=== PATIENT | male | born 1995 | race African-American/Black ===

== ENCOUNTER 2023-06-21 15:59 | Emergency (ER) | payer SELFPAY ==
[2023-06-21 16:14] VITALS: BP 165/106; PULSE 85; RESP 18; TEMP 36.6; O2SAT 99
--- NOTE | 2023-06-21 16:25 | ED.EYEPROB ---
HPI - Eye Problem General Chief complaint: Eye Problems Stated complaint: Eyes Irritation Time Seen by Provider: 06/21/23 16:15 Source: patient Mode of arrival: ambulatory Limitations: no limitations History of Present Illness HPI Narrative: Jose Alberto is a 27-year-old male patient presenting to the clinic today with complaints of bilateral eye irritation/burning. 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 Positive for photosensitivity and eye watering. Related Data Home Medications Medication Instructions Recorded Confirmed amlodipine 5 mg tablet mg 06/21/23 warfarin 10 mg tablet mg 06/21/23 Allergies Allergy/AdvReac Type Severity Reaction Status Date / Time amoxicillin [From Amoxil] Allergy Swelling Verified 06/21/23 16:21 Review of Systems Review of Systems: Pertinent positives per HPI. Patient denies any fever, chills, rash, headache, dizziness, cough, runny nose, sore throat, shortness of breath, chest pain, palpitations, nausea, vomiting, diarrhea, constipation, abdominal pain, or any urinary issues. PMFSH Comments At the time of my signature, I reviewed and agree with the nursing past medical, surgical, social, and family history. There is no relevant family history pertinent to the patient complaint. Exam Narrative: General: Well-developed, well nourished, in no apparent distress Head: Normocephalic, atraumatic Eyes: Pupils equally round and reactive to light bilaterally, EOM intact, sclera injected and conjunctive clear, watery discharge, lids normal Ears: TMs intact and clear, ear canals clear, no drainage, grossly hearing normal. Nose: Nares patent, no discharge, no inflammation, no sinus tenderness. Mouth: Oropharynx without lesions or masses, good dentition, MMM. Neck: Supple, trachea midline, no enlargement of anterior or posterior cervical nodes, no thyroid masses or goiter palpable. Cardio: Regular rate and rhythm, s1 and s2 normal, no murmur appreciated. Resp: Clear to auscultation bilaterally anteriorly and posteriorly, no rhonchi, rales, wheezing or rubs Course Course Emergency Course: Portions of this record may have been created with voice recognition software. Level of Care: Express Care Visit Vital Signs Vital signs: Vital Signs Temperature 36.6 C 06/21/23 16:14 Pulse Rate 85 06/21/23 16:14 Respiratory Rate 18 06/21/23 16:14 Blood Pressure 165/106 H 08/28/23 16:14 Pulse Oximetry 99 06/21/23 16:14 Oxygen Delivery Room Air 06/21/23 16:14 Temperature 36.6 C 06/21/23 16:14 Pulse Rate 85 06/21/23 16:14 Respiratory Rate 18 06/21/23 16:14 Blood Pressure 165/106 H 06/21/23 16:14 Pulse Oximetry 99 06/21/23 16:14 Oxygen Delivery Room Air 06/21/23 16:14 Vital signs reviewed Procedures Other Procedure Procedure 1: Other Procedure: Two drops of tetracaine was instilled into each eye to help alleviate eye pain. MDM - Eye Problem MDM Narrative Medical decision making narrative: At the time of visit patient is resting comfortably on the exam table. I suspect patient has a corneal flash burn-photo keratosis-will send in prescription for E-Mycin ointment and tetracaine 2 drops were instilled into each eye to help alleviate pain. Supportive measures were discussed with the patient he voiced understanding discharge instructions. Recommend follow-up with an eye doctor this week to determine when patient can go back to work Differential Diagnosis Differential diagnosis: Likely corneal abrasion, conjunctivitis, acute iritis, periorbital cellulitis, corneal ulcer, ruptured globe and other (Photo keratitis) Discharge Plan Discharge Clinical Impression: Photokeratitis of both eyes Patient Disposition: Home, Self-Care Condition: Stable Instructions: Antibiotic Form, Corneal Flash Monsalve (ED) Additional Instructions: Wear sunglasses for photosensitivity No welding x1 week Instill erythromycin
== END 2023-06-21 16:37 | disposition home or self-care (01) ==
PROVIDERS: Emergency Provider Nurse Practitioner Family
DX: H16.133 Photokeratitis, bilateral (principal); I10 Essential (primary) hypertension
CPT/HCPCS: 99203; G0463

== ENCOUNTER 2025-01-16 17:09 | Emergency (ER) | payer OTHER, SELFPAY ==
[2025-01-16 17:16] VITALS: BP 165/110; PULSE 94; RESP 16; TEMP 36.7; O2SAT 100
[2025-01-16 17:25] VITALS: BP 177/120; PULSE 80; RESP 18; O2SAT 98
--- NOTE | 2025-01-16 17:38 | ECG_ITS ---
Test Date: 2025-01-16 17:59:55 Measurements Intervals [place] Rate: 71 P: 0 TN: 0 QRS: -22 QRSD: 115 T: 159 QT: 366 QTc: 399 Interpretive Statements SINUS RHYTHM BORDERLINE LEFT AXIS DEVIATION [QRS AXIS < -20] INCOMPLETE RIGHT BUNDLE BRANCH BLOCK [90+ ms QRS DURATION, TERMINAL R IN V1/V2, 40+ ms S IN I/aVL/V4/V5/V6] POSSIBLE LEFT VENTRICULAR HYPERTROPHY [VOLTAGE CRITERIA PLUS LAE OR QRS WIDENING] ST DEVIATION AND MODERATE T-WAVE ABNORMALITY, CONSIDER LATERAL ISCHEMIA [-0.1+ mV T WAVE IN I/aVL/V5/V6] No previous ECG available for comparison Electronically Signed On 01-17-2025 12:46:27 CDT by Ajay Gray M.D.
[2025-01-16 17:42] VITALS: BP 188/123; PULSE 71; RESP 18; O2SAT 97
[2025-01-16 17:47] VITALS: BP 182/112; PULSE 82; RESP 18; O2SAT 98
--- NOTE | 2025-01-16 17:50 | ED.GENADULT ---
HPI - General Adult General Chief complaint: Extremity Problem,Nontraumatic Stated complaint: blood clot Time Seen by Provider: 01/16/25 17:49 Mode of arrival: ambulatory Limitations: no limitations History of Present Illness HPI narrative: 29-year-old male presents concern for blood clot in his left lower extremity. He reports history of blood clots in that extremity that was not deep. He was on warfarin for a short period of time, he is not currently on any blood thinner. Reports over the last several days he has had pain in that medial left lower leg, reports warmth. He reports pain when he standing, reports he is on his feet a lot. Patient is hypertensive in triage, he does not currently take any antihypertensives, he reports he may have taken more in the past. Denies chest pain, shortness of breath, headache, vision changes. He denies weakness in any extremity. Related Data Home Medications ?Medication ?Instructions ?Recorded ?Confirmed ?Last Taken ?Type No Home Medications 01/16/25 01/16/25 Unknown History Allergies Allergy/AdvReac Type Severity Reaction Status Date / Time amoxicillin (From Amoxil) Allergy Swelling Verified 01/16/25 17:24 Review of Systems Review of Systems: CONSTITUTIONAL: Denies malaise, chills, sweats, or fever. EYES: Denies visual changes, redness, or discharge. ENT: Denies rhinorrhea, congestion, sinus pain, otalgia or sore throat. CARDIOVASCULAR: Denies chest pain, palpitations, or edema. RESPIRATORY: Denies cough or dyspnea. SKIN: Reports varicose veins in the left lower extremity MUSCULOSKELETAL: Reports left lower leg pain, warmth NEUROLOGIC: Denies numbness, weakness, or headache. PSYCHIATRIC: Denies anxiety or depression. All systems reviewed & are unremarkable except as noted in HPI and below PMFSH Comments At time of signature, agree with nursing past medical, surgical, social and family history. There is no relevant family history pertinent to the presenting complaint Exam Narrative: GENERAL: Nontoxic-appearing, well-nourished, and in no acute distress. HEAD: Normocephalic, atraumatic. EYES: PERRLA, sclera clear ENT: Nares clear. Mucous membranes moist. NECK: Supple. CHEST: No respiratory distress. Clear to auscultation. No bony deformities, no asymmetry. Speaks in full sentences. HEART: Regular rate and rhythm. No murmur heard. Normal peripheral pulses in the left lower extremity. EXTREMITIES: Grossly Normal range of motion in the left lower. No left lower extremity edema. Grossly Normal strength and sensation. Varicosities noted in the left lower extremity SKIN: Warm, dry, no visible rash. NEURO: Alert and oriented x3. No focal deficits. PSYCH: Normal mood and affect Course Course Emergency Course: Patient is aware of, understands and agrees to be transferred to the emergency. Patient agrees to be transferred to the emergency room via EMS Portions of this record may have been created with voice recognition software Level of Care: Express Care Visit Vital Signs Vital signs: Vital Signs Temperature 98.0 F 01/16/25 17:16 Pulse Rate 94 01/16/25 17:16 Respiratory Rate 16 01/16/25 17:16 Blood Pressure 165/110 H 01/16/25 17:16 Pulse Oximetry 100 01/16/25 17:16 Oxygen Delivery Room Air 01/16/25 17:16 Temperature 98.0 F 01/16/25 17:16 Pulse Rate 94 01/16/25 17:16 Respiratory Rate 16 01/16/25 17:16 Blood Pressure 165/110 H 01/16/25 17:16 Pulse Oximetry 100 01/16/25 17:16 Oxygen Delivery Room Air 01/16/25 17:16 Reviewed. Transfer Transfered to: [facility] Transportation: [facility] Transfer rationale: Abnormal EKG, hypertension Accepting physician: [facility] Decision Making [facility] Narrative Medical decision making narrative: Patient is nontoxic appearing and in no acute distress Vital Signs Vital Signs: Vital Signs Temperature 98.0 F 01/16/25 17:16 Pulse Rate 94 01/16/25 17:16 Respiratory Rate 16 01/16/25 17:16 Blood Pressure 165/110 H 01/16/25 17:16 Pulse Oximetry 100 01/16/25 17:16 Oxygen Delivery Room Air 01/16/25 17:16 Temperature 98.0 F 01/16/25 17:16 Pulse Rate 94 01/16/25 17:16 Respiratory Rate 16 01/16/25 17:16 Blood Pressure 165/110 H 01/16/25 17:16 Pulse Oximetry 100 01/16/25 17:16 Oxygen Delivery Room Air 01/16/25 17:16 ECG Data EKG #1: ECG completion date: 01/16/25 ECG completion time: 17:59 Prior ECG tracings: not available for review Interpretation: Rate 71, borderline left axis deviation, possible left ventricular hypertrophy, ST deviation and moderate T-wave abnormality EKG Interpretation: normal rate, atrial fibrillation and RBBB Critical Care Time Critical Care Time Critical Care Time: No Discharge Plan Discharge Clinical Impression: Abnormal ECG, Hypertension Patient Disposition: Acute Care Hospital Condition: Stable Patient Language: [place] Prescriptions: No Action warfarin 10 mg tablet amlodipine 5 mg tablet erythromycin 5 mg/gram (0.5 %) ointment 0.5 inch EACH EYE QID 7 Days Qty: 50 0RF Follow-up/Referrals: UNKNOWN,DOCTOR [Primary Care Provider] - Time of Disposition: 18:12
[2025-01-16 18:02] VITALS: BP 178/115; PULSE 83; RESP 18; O2SAT 98
[2025-01-16 18:10] VITALS: BP 178/115; PULSE 82; RESP 16; O2SAT 98
== END 2025-01-16 18:10 | disposition short-term general hospital (02) ==
PROVIDERS: Emergency Provider Nurse Practitioner
DX: R94.31 Abnormal electrocardiogram [ECG] [EKG] (principal); I10 Essential (primary) hypertension; Z86.2 Personal history of diseases of the blood and blood-forming organs and certain disorders involving the immune mechanism
CPT/HCPCS: 93005; 99213; G0463

== ENCOUNTER 2025-01-16 18:28 | Emergency (ER) | payer OTHER, SELFPAY ==
--- NOTE | ~2025-01-16 | US_ITS ---
EXAMINATION: US venous doppler [facility] DATE: 01/16/2025 20:08 INDICATION: LLE pain and swelling, varicose veins . TECHNIQUE: Grayscale images without and with compression and Doppler images of the left lower extremi ty veins were obtained. COMPARISON: None FINDINGS: The left common femoral vein, profunda (deep) femoral vein, femoral vein, popliteal vein, peroneal v ein, posterior tibial veins, gastrocnemius vein, and greater saphenous vein are patent. IMPRESSION: Patent left lower extremity veins. No evidence of deep venous thrombosis. Reviewed, dictated and finalized at location K.
[2025-01-16 18:29] VITALS: PULSE 80; RESP 20; TEMP 37.1; O2SAT 98
[2025-01-16 18:37] VITALS: RESP 20; O2SAT 98
--- NOTE | 2025-01-16 18:41 | ECG_ITS ---
Test Date: 2025-01-16 18:45:16 Measurements Intervals [place] Rate: 68 P: 24 UT: 160 QRS: -26 QRSD: 116 T: 156 QT: 386 QTc: 412 Interpretive Statements SINUS RHYTHM BORDERLINE LEFT AXIS DEVIATION [QRS AXIS < -20] INCOMPLETE RIGHT BUNDLE BRANCH BLOCK [90+ ms QRS DURATION, TERMINAL R IN V1/V2, 40+ ms S IN I/aVL/V4/V5/V6] LEFT VENTRICULAR HYPERTROPHY AND ST-T CHANGE [VOLTAGE CRITERIA PLUS ST/T ABNORMALITY] Compared to ECG 01/16/2025 17:59:55 NO SIGNIFICANT CHANGES Electronically Signed On 01-17-2025 12:46:47 CDT by Ajay Gray M.D.
--- NOTE | 2025-01-16 19:02 | ED.RECABL ---
HPI - Recheck/Abnormal Lab/Rx General Chief Complaint: Recheck/Abnormal Lab/Rx Stated Complaint: abnormal ekg Time Seen by Provider: 01/16/25 18:31 Source: patient Mode of arrival: ambulatory Limitations: no limitations History of Present Illness HPI narrative: This is a 29-year-old male who presents to the ED referred over from urgent care today for possible AFib. Patient states that he was having left lower leg pain and has varicose veins the left leg. 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 States that at urgent care they did an EKG and told him he had AFib in to come to the ER. He denies shortness of breath, chest pain, palpitations. Denies any specific injury to the leg. States that he has been told he has superficial phlebitis in the past but not any DVT. Denies fevers, chills, rash, numbness, weakness, nausea, vomiting. Related Data Allergies Allergy/AdvReac Type Severity Reaction Status Date / Time amoxicillin (From Amoxil) Allergy Swelling Verified 01/16/25 17:24 Review of Systems Review of Systems: All systems as dictated in HPI Exam Narrative: GENERAL: Well-appearing, well-nourished, and in no acute distress. HEAD: Normocephalic, atraumatic. EYES: PERRLA and EOMI. ENT: Nares clear, no rhinorrhea or epistaxis. Mucous membranes moist. Oropharynx without tonsillar hypertrophy exudate or other lesions. NECK: Supple. No adenopathy or masses. CHEST: No respiratory distress. Clear to auscultation. No wheezes rales or rhonchi HEART: Regular rate and rhythm. No murmur heard. Normal peripheral pulses. ABDOMEN: Soft, nontender, nondistended, normal active bowel sounds. MSK: Normal range of motion. No edema. Mild varicose veins to the left lower extremity. No erythema or warmth. SKIN: Warm, dry, no rash. NEURO: Alert and oriented x4. No focal deficits. PSYCH: Normal mood and affect. Course Vital Signs Vital signs: Vital Signs Temperature 98.8 F 01/16/25 18:29 Pulse Rate 80 01/16/25 18:29 Respiratory Rate 20 01/16/25 18:29 Pulse Oximetry 98 01/16/25 18:29 Oxygen Delivery Room Air 01/16/25 18:29 Temperature 98.8 F 01/16/25 18:29 Pulse Rate 83 01/16/25 21:42 Respiratory Rate 20 01/16/25 21:42 Blood Pressure 178/112 H 01/16/25 21:42 Pulse Oximetry 98 01/16/25 21:42 Oxygen Delivery Room Air 01/16/25 18:29 MDM - Recheck/Abnormal Lab/Rx MDM Narrative Medical decision making narrative: This is a 29-year-old male who presents to the ED for chief complaint of lower extremity pain and swelling. He was told urgent care he may have AFib based on their EKG. On arrival is vitals show elevated blood pressure but otherwise normal. EKG at urgent care and here today does not reveal AFib. He is in sinus rhythm. Exam for is remarkable for left varicose vein. Lab work shows no remarkable findings. Ultrasound left lower extremity shows no DVT. Patient was given Toradol here with good relief of pain. He will be given Rx for mod Pain for elevated blood pressure and encouraged follow-up with PCP on this issue. Patient will be discharged in stable condition. Supportive measures discussed and return precautions given. Patient is understanding and agreeable with plan for discharge with PCP follow-up. Lab Data 01/16/25 19:09 01/16/25 19:09 Labs: Lab Results 01/16/25 Range/Units 19:09 WBC 8.3 (4.5-10.0) K/mm3 RBC 5.26 (4.6-6.20) M/mm3 Hgb 15.4 (14.0-18.0) g/dL Hct 46.9 (42.0-52.0) % MCV 89.2 (80-100) fl MCH 29.3 (26-34) pg MCHC 32.8 (32-36) g/dl RDW 11.9 (11.5-14.5) % Plt Count 216 (150-375) k/mm3 MPV 9.9 (7.4-10.4) fl Immature Gran % (Auto) 0.2 (0-0.5) % Neut % (Auto) 67.2 (45.5-73.1) % Lymph % (Auto) 22.7 (18.3-44.2) % [place] % (Auto) 7.9 (2.6-8.5) % Eos % (Auto) 1.6 (0-4.4) % Baso % (Auto) 0.4 (0.2-1.2) % Lymph # (Auto) 1.88 (0.9-3.2) K/mm3 [place] # (Auto) 0.7 H (0.1-0.6) K/mm3 Eos # (Auto) 0.1 (0-0.3) K/mm3 Baso # (Auto) 0.0 (0.0-0.1) K/mm3 Abs Immat Gran (auto) 0.02 (0.00-0.031) K/mm3 Absolute Neuts (auto) 5.6 (1.3-6.7) K/mm3 Absolute Nucleated RBC 0.000 (0.0-0.012) K/mm3 Nucleated RBC % 0.0 (0.0-0.2) % PT 13.6 (11.1-14.7) Seconds INR 1.0 APTT 25.0 (22.3-36.8) Seconds Sodium 140 (137-145) mmol/L Potassium 3.6 (3.4-5.0) mmol/L Chloride 104 (98-107) mmol/L Carbon Dioxide 27 (22-30) mmol/L Anion Gap 9 (4-12) mmol/L BUN 11 (9-20) mg/dL Creatinine 0.93 (0.7-1.3) mg/dL Estim Creat Clear Calc 141 ml/min Estimated GFR > 60 (59 - ) Glucose 85 (65-110) mg/dL Calcium 9.1 (8.4-10.2) mg/dL Total Bilirubin 1.5 H (0.2-1.3) mg/dL AST 22 (17-59) U/L ALT 16 (6-50) U/L Alkaline Phosphatase 66 (38-126) U/L Total Protein 8.0 (6.3-8.2) g/dL Albumin 4.3 (3.5-5.1) g/dL Discharge Plan Discharge Clinical Impression: Leg pain, left, Blood pressure elevated without history of HTN, Varicose vein of leg Patient Disposition: Home, Self-Care Condition: Stable Instructions: Antibiotic Form Additional Instructions: Exam and imaging today are reassuring. Please take amlodipine daily for blood pressure. Use ibuprofen every 6 hours as needed pain control. If you have any new or worsening symptoms please return to the ER for further evaluation. Patient Language: Tu[place] Prescriptions: New amlodipine 2.5 mg tablet 2.5 mg PO DAILY Qty: 30 0RF ibuprofen 600 mg tablet 600 mg PO Q6H PRN (Reason: pain) Qty: 30 0RF Follow-up/Referrals: Dimitri Rosenberg MD [Physician] - UNKNOWN,DOCTOR [Non-Staff] - Stand Alone Forms: Work/School Release IP Time of Disposition: 21:05
[2025-01-16 19:18] LABS: Basophils Percent Auto 0.4 % (0.2-1.2); Eosinophils Absolute Auto 0.1 K/mm3 (0-0.3); Eosinophils Percent Auto 1.6 % (0-4.4); Hematocrit 46.9 % (42.0-52.0); Hemoglobin 15.4 g/dL (14.0-18.0); Immature Granulocyte Absolute 0.02 K/mm3 (0.00-0.031); Immature Granulocyte Percent A 0.2 % (0-0.5); Lymphocytes Absolute Auto 1.88 K/mm3 (0.9-3.2); Lymphocytes Percent Auto 22.7 % (18.3-44.2); Mean Corpuscular HGB Conc 32.8 g/dl (32-36); Mean Corpuscular Hemoglobin 29.3 pg (26-34); Mean Corpuscular Volume 89.2 fl (80-100); Mean Platelet Volume 9.9 fl (7.4-10.4); Monocytes Absolute Auto 0.7 K/mm3 (0.1-0.6); Monocytes Percent Auto 7.9 % (2.6-8.5); Neutrophils Absolute Auto 5.6 K/mm3 (1.3-6.7); Neutrophils Percent Auto 67.2 % (45.5-73.1); Platelet Count Result 216 k/mm3 (150-375); Red Blood Count 5.26 M/mm3 (4.6-6.20); Red Cell Distribution Width 11.9 % (11.5-14.5); White Blood Count 8.3 K/mm3 (4.5-10.0)
--- OUTSIDE RECORDS SUMMARY | 2025-01-16 19:18 | XMS_ITS | Clinical Summary ---
Author Organization [facility] Address [facility] [place] [address] Care Team Providers Care Stoker Erector And Servicer Name Role Phone Seema Paulino MD Primary Care Provider [phone] Allergies Active Allergy Reactions Criticality Noted Date Comments Amoxicillin Swelling 03/29/2023 Medications warfarin (COUMADIN) 10 MG tablet Take 1 tablet (10 mg total) by mouth daily. 30 tablet 04/19/2023 Active HYDROcodone-acet aminophen (NORCO) 5-325 MG tabletIndication s:Acute Pain < 7 Day Supply Take 1 tablet by mouth every 6 (six) hours as needed for Pain. Indications : Acute Pain < 7 Day Supply 12 tablet 06/09/2023 Active Active Problems Problem Noted Date Diagnosed Date DVT (deep venous thrombosis) ([facility]) 0 03/29/2023 Social History Tobacco Use Types Packs/Day Years Used Date Smoking Tobacco: Every Day Cigars Smokeless Tobacco: Never Tobacco Cessation:Ready to Q uit: Not Asked; Counseling Given: Not Answered Alcohol Use Standard Drinks/Week Comments Never 0 (1 standard drink = 0.6 oz pur e alcohol) Sex and Gender Information Value Date Recorded Sex Assigned at Not on file Legal Sex Male 7:12 PM CDT Gender Identity Not on file Sexual Orientation Not on file Last Filed Vital Signs Vital Sign Reading Time Taken Comments Blood Pressure 154/118 06/09/2023 4:03 AM CDT Pulse 87 06/09/2023 4:03 AM CDT Temperature 36.7 C (98 F) 06/09/2023 4:03 AM CDT Respiratory Rate 20 06/09/2023 4:03 AM CDT Oxygen Saturation 100% 06/09/2023 4:03 AM CDT Inhaled Oxygen Concentration - - Weight 129.3 kg (285 lb) 06/09/2023 4:03 AM CDT Height 185.4 cm (6' 1 ) 06/09/2023 4:03 AM CDT Body Mass Index 37.6 06/09/2023 4:03 AM CDT Plan of Treatment Health Maintenance Due Date Last Done Comments Annual Physical 1998 Pneumococcal Vaccine: Pediatrics (0 to 5 Years) and At-Risk Patients (6 to 64 Years) (1 of 2 - PCV) 2001 DTaP, Tdap and Td Vaccines (6 - Tdap) 2006 10/05/2005, 03/26/1997, 09/11/1996, Additional history exists Hepatitis C 2013 COVID-19 Vaccine ( season) 2024 09/03/2021 Influenza Adult (#1) 2024 Hepatitis B Vaccines Completed 09/11/1996, 01/11/1996, 1995 Meningococcal Vaccine Aged Out 06/20/2008 No emma subhash eligible based on patient's age to complete this topic HPV Vaccines Aged Out No longer eligi ble based on patient's age to complete this topic Meningococcal B Vaccine Aged Out No l onger eligible based on patient's age to complete this topic RSV Immunizations Under 20 Months Aged Out No longer eligible based on patient's age to complete this topic Insurance [facility] Care Teams Stoker Erector And Servicer Relationship Specialty Start Date End Date Seema Paulino MD [address] [place] [address] PCP - General FAMILY PRACTICE 05/28/23
[2025-01-16 19:28] LABS: Alanine Aminotransferase 16 U/L (6-50); Albumin Level 4.3 g/dL (3.5-5.1); Alkaline Phosphatase 66 U/L (38-126); Anion Gap 9 mmol/L (4-12); Aspartate Amino Transferase 22 U/L (17-59); Bilirubin,Total 1.5 mg/dL (0.2-1.3); Blood Urea Nitrogen 11 mg/dL (9-20); Calcium 9.1 mg/dL (8.4-10.2); Carbon Dioxide 27 mmol/L (22-30); Chloride 104 mmol/L (98-107); Estimated CRCL calculation 141 ml/min; Estimated Glomerular Filt Rate > 60; Glucose 85 mg/dL (65-110); Potassium 3.6 mmol/L (3.4-5.0); Sodium 140 mmol/L (137-145)
[2025-01-16 19:44] LABS: Prothrombin Time 13.6 Seconds (11.1-14.7)
[2025-01-16] MEDS: KETOROLAC 15 MG/ML VIAL (*BKC) IV PUSH (19:48)
[2025-01-16 19:51] VITALS: BP 173/118; PULSE 63; RESP 18; O2SAT 99
[2025-01-16 21:42] VITALS: BP 178/112; PULSE 83; RESP 20; O2SAT 98
== END 2025-01-16 21:44 | disposition home or self-care (01) ==
PROVIDERS: Emergency Provider Physician Assistant
DX: M79.605 Pain in left leg (principal); R03.0 Elevated blood-pressure reading, without diagnosis of hypertension; I83.92 Asymptomatic varicose veins of left lower extremity; R94.31 Abnormal electrocardiogram [ECG] [EKG]
CPT/HCPCS: 36415; 80053; 85025; 85610; 85730; 93005; 93971; 96374; 99284; J1885